=== PATIENT | male | born 1955 | race African-American/Black ===

== ENCOUNTER 2023-07-20 13:55 | Outpatient (CLI) | payer MEDICARE, OTHER, SELFPAY ==
--- NOTE | ~2023-07-20 | PE_ITS ---
EXAMINATION: PET_PETPSMAST_PT DATE: 07/20/2023 16:04 INDICATION: Osteopenia cancer TECHNIQUE: 7.715 mCi of pipflufolastat F-18 (18-F-DCFPyL) was administered i.v. Low dose computed to mography (CT) images were acquired from the base of the brain to the base of the brain to the proxima l thighs for attenuation correction and anatomic localization. Positron emission tomography (PET) oswald ges were acquired in the same distribution beginning 82 minutes after injection. Images including fus ed PET/CT images were reconstructed in axial, coronal, and sagittal planes. Automated exposure contro l technique was employed. The dose-length product was 581.65mGy-cm. COMPARISON: None FINDINGS: Musculoskeletal: There is increased PSMA uptake associated with numerous sclerotic bone lesions scattered throughout t he axial and appendicular skeleton. The largest sclerotic lesion involves a large portion of the righ t scapula including the spine, glenoid and coracoid process with maximal SUV values up to 220. Photop enic defect streak artifact associated with a reverse right total shoulder arthroplasty. Head/neck: Typical pattern of symmetric physiologic increased activity in the lacrimal, parotid and submandibula r glands as well as along the mucosa of the nasal and oral cavities, the dominic-, naso- and hypopharynx, the glottis and esophagus. There are several normal-sized but prominently PSMA avid left cervical ly mph nodes along the jugular chain and posterior triangle. For reference there is an 11 x 8 mm left ju gular chain lymph node on image 53 with maximal SUV of 48.1 and a 7 x 5 number lymph nodes in the lef t posterior triangle with maximal SUV of 28.1. Chest: Moderate emphysema. No suspicious pulmonary nodules, pneumonia, pulmonary edema or pleural effusion. Heart size is normal. Atherosclerotic coronary artery calcific location. No pericardial effusion. Fus iform ascending thoracic aortic aneurysm measuring up to 4.5 cm in maximal diameter. No pathologicall y enlarged or PSMA avid thoracic lymphadenopathy. Abdomen/pelvis/proximal thighs: Physiologic renal accumulation and excretion of activity in the kidneys, bladder and along portions o f ureters. There is asymmetric moderate right hydroureteronephrosis which extends caudally to the rig ht ureterovesicular junction with no evident obstructing stone or mass. There are brachytherapy seeds at the prostate likely for treatment of reported prostate cancer. There are a couple approximately 1 cm suspicious foci of increased PSMA activity in the prostate peripheral to the expected location of the urethra which are without correlate on the CT images which are suspicious for residual prostate cancer. The more cephalad located at the left posterior margin of the prostate with maximal SUV of 8. 0 and the more caudal at the posterior inferior margin of the prostate with maximal SUV of 8.6. Jody l degree and slightly heterogenous pattern of increased uptake throughout the liver and spleen withou t radiologic correlate or dominant PSMA avid lesion. The gallbladder, pancreas and bilateral adrenal glands are normal. Moderate uptake scattered throughout the bowels with typical duodenal and proximal jejunal predominance and without radiologic correlate, also likely physiologic. There are few scatte red colonic diverticula without adjacent from trace stranding to suggest diverticulitis. There is mil d PSMA uptake associated with a few normal-sized bilateral inguinal lymph nodes. The most intense upt von is associated with a 1.4 x 0.9 cm right inguinal lymph node with maximal SUV of 4.0. No other abn ormal foci of increased uptake or pathologically enlarged lymphadenopathy in the abdomen or pelvis. IMPRESSION: 1. Surgical clips versus brachytherapy seeds in the prostate consistent with likely treatment for rep orted prostate cancer. A couple small foci of suspicious increased PSMA uptake in the left posterior
== END 2023-07-20 13:56 | disposition home or self-care (01) ==
LOC: ANHIMG 14:06
PROVIDERS: Visit Provider Urology
DX: C61 Malignant neoplasm of prostate (principal); M89.9 Disorder of bone, unspecified; I71.40 Abdominal aortic aneurysm, without rupture, unspecified; N13.30 Unspecified hydronephrosis
CPT/HCPCS: 78815; A9595